=== PATIENT | male | born 1965 ===

== ENCOUNTER 2020-02-10 13:55 | Emergency (ER) | payer OTHER ==
[~2020-02-10] VITALS: Ht 172.7 cm; Wt 80.0 kg
[2020-02-10 14:39] LABS: BASOPHILS % (AUTO) 0.4 % (0-1); EOSINOPHILS % (AUTO) 0.1 % (0-6); HEMATOCRIT 40.7 % (42.0-52.0); HEMOGLOBIN 14.5 g/dl (14.0-17.9); LYMPHOCYTES # (AUTO) 0.5 X10'3 (1.1-4.8); LYMPHOCYTES % (AUTO) 10.3 % (21-51); MEAN CORPUSCULAR HEMOGLOBIN 32.3 PG (27.0-31.0); MEAN CORPUSCULAR HGB CONC 35.6 g/dL (33.0-36.5); MEAN CORPUSCULAR VOLUME 90.8 FL (78-98); MEAN PLATELET VOLUME 8.8 FL (7.4-10.4); MONOCYTES # (AUTO) 0.5 X10'3 (0-0.9); MONOCYTES % (AUTO) 10.4 % (2-12); NEUTROPHILS # (AUTO) 3.6 X10'3 (1.8-7.7); NEUTROPHILS % (AUTO) 78.8 % (42-75); PLATELET COUNT 150 X10'3 (140-440); RED BLOOD COUNT 4.48 X10'6 (4.70-6.10); RED CELL DISTRIBUTION WIDTH 12.4 % (11.5-14.5); WHITE BLOOD COUNT 4.6 X10'3 (4.5-11.0)
[2020-02-10] MEDS ORDERED: acetaminophen 325mg tablet PO ONE (14:45)
[2020-02-10] MEDS ORDERED: normal saline 1000ML IV soln IV ONE (14:45)
[2020-02-10] MEDS ORDERED: ketorolac tromethamine 15mg/ml inj. IV ONE ×2 (15:05→15:35)
[2020-02-10 15:06] LABS: ALANINE AMINOTRANSFERASE 33 U/L (12-78); ALBUMIN 3.1 G/DL (3.4-5.0); ALBUMIN/GLOBULIN RATIO 0.9 (1.1-1.5); ALKALINE PHOSPHATASE 37 IU/L (46-116); ANION GAP 9 (8-16); ASPARTATE AMINO TRANSFERASE 48 U/L (10-37); BILIRUBIN,TOTAL 0.7 MG/DL (0.1-1.0); BLOOD UREA NITROGEN 18 MG/DL (7-18); BUN/CREATININE RATIO 13.3 (5.4-32.0); CALCIUM 8.6 MG/DL (8.5-10.1); CHLORIDE 89 MMOL/L (99-107); CREATININE 1.35 MG/DL (0.60-1.10); GLUCOSE 119 MG/DL (70-104); POTASSIUM 3.4 MMOL/L (3.5-5.1); SODIUM 128 MMOL/L (135-145); TOTAL CARBON DIOXIDE 30.5 MMOL/L (24-32); TOTAL PROTEIN 6.7 G/DL (6.4-8.2); eGFR 55 ML/MIN
[2020-02-10 15:36] LABS: C-REACTIVE PROTEIN 7.33 MG/DL (0.0-0.5); LACTATE DEHYDROGENASE 253 U/L (85-227); MAGNESIUM 2.1 MG/DL (1.5-2.4)
[2020-02-10] MEDS ORDERED: DEXAMETHASONE 6 MG TABLET PO ONE (15:45)
[2020-02-10] MEDS ORDERED: METH4TAB81 PO (15:56)
[2020-02-10 16:08] VITALS: BP 103/60
--- NOTE | 2020-02-10 16:14 | NUR ---
Pt updated with plan of care and will be d/c home after fluids infuse.
[2020-02-10 16:15] LABS: FERRITIN 2087 NG/ML (26-388)
--- NOTE | 2020-02-10 16:37 | NUR ---
Patient was given a pulse ox for home use. Patient educated regarding checking oxygen saturation with pulse oximeter. Per Dr. Rico, patient is to check oxygen saturation when feeling SOB at rest and if oxygen sat is less than 90% he should return to ED and if oxygen saturation decreases below at rest sat with ambulation, patient is to return.
== END 2020-02-10 17:11 | disposition home or self-care (01) ==
LOC: ER 13:56
DX: U07.1 COVID-19 (principal); J12.89 Other viral pneumonia; E87.1 Hypo-osmolality and hyponatremia; R53.1 Weakness
CPT/HCPCS: 36415; 71045; 80053; 82728; 83605; 83615; 83735; 84145; 85025; 85384; 86140; 87040; 87635; 93005; 96361; 96374; 99285; C9803; J1885; J7030; J8540